=== PATIENT | female | born 1975 | race Caucasian/White ===

== ENCOUNTER 2023-04-08 10:49 | Outpatient (CLI) | payer BC ==
[2023-04-08 12:02] LABS: Hematocrit 42.2 % (34.9-44.5)
== END 2023-04-08 10:50 | disposition home or self-care (01) ==
LOC: LABBT 10:49
PROVIDERS: ATTEND Specialist
DX: Z01.812 Encounter for preprocedural laboratory examination (principal); G47.33 Obstructive sleep apnea (adult) (pediatric); J34.2 Deviated nasal septum; J34.3 Hypertrophy of nasal turbinates; J34.89 Other specified disorders of nose and nasal sinuses
CPT/HCPCS: 85014

== ENCOUNTER 2023-04-10 08:52 | Day surgery (SDC) | payer BC ==
[2023-04-08 11:14] VITALS: BMI 25.4
[2023-04-10] MEDS ORDERED: Scopolamine 1 mg/72 hour Patch ONE (09:03)
[2023-04-10] MEDS ORDERED: Oxymetazoline HCl 0.05% (30 ML BOT) ONE ×2 (09:04→09:08)
[2023-04-10] MEDS ORDERED: Bacitracin Zinc Ointment 30 gm TUBE ONE (09:08)
[2023-04-10] MEDS ORDERED: EPINEPHrine 1 MG/ML VIAL ONE (09:08)
[2023-04-10] MEDS ORDERED: Lidocaine 1% (PF) 30 ML VIAL ONE (09:09)
[2023-04-10] MEDS ORDERED: fentaNYL PF 100 MCG/2 ML SYRINGE ONE (09:15)
[2023-04-10] MEDS ORDERED: Propofol 1,000 MG/100 ML VIAL IV ONE (09:17)
[2023-04-10] MEDS ORDERED: Midazolam HCl 2 mg/2 ml Vial ONE (09:29)
[2023-04-10] MEDS ORDERED: Acetaminophen 500 MG TAB ONE (09:32)
[2023-04-10] MEDS ORDERED: Dexamethasone 20 MG/5 ML VIAL ONE (09:55)
[2023-04-10] MEDS ORDERED: Ondansetron PF 4 MG/2 ML Vial ONE (09:55)
[2023-04-10] MEDS ORDERED: PROPOFOL 200 MG/20 ML VIAL ONE (09:55)
[2023-04-10] MEDS ORDERED: Rocuronium Bromide 10 MG/ML (10ML VIAL) ONE (09:55)
[2023-04-10] MEDS ORDERED: ePHEDrine Sulfate 50 MG/10 ML VIAL ONE ×2 (09:55→10:07)
[2023-04-10] MEDS ORDERED: Ketorolac Tromethamine 30 MG/ML VIAL ONE (09:55)
[2023-04-10] MEDS ORDERED: Lidocaine 1% PF 5 ML VIAL ONE (09:55)
[2023-04-10] MEDS ORDERED: fentaNYL 50 mcg/mL 1 mL Vial ONE (11:30)
== END 2023-04-10 13:00 | disposition home or self-care (01) ==
LOC: SDC 08:52
PROVIDERS: ATTEND Specialist
PROC: 8E09XBZ Computer Assisted Procedure of Head and Neck Region (ICD-10-PCS; principal; 2023-04-10)
PROC: 09TV4ZZ Resection of Left Ethmoid Sinus, Percutaneous Endoscopic Approach (ICD-10-PCS; principal; 2023-04-10)
PROC: 09BM4ZZ Excision of Nasal Septum, Percutaneous Endoscopic Approach (ICD-10-PCS; principal; 2023-04-10)
PROC: 09TU4ZZ Resection of Right Ethmoid Sinus, Percutaneous Endoscopic Approach (ICD-10-PCS; principal; 2023-04-10)
PROC: 09JK8ZZ Inspection of Nasal Mucosa and Soft Tissue, Via Natural or Artificial Opening Endoscopic (ICD-10-PCS; principal; 2023-04-10)
DX: J34.3 Hypertrophy of nasal turbinates (principal); J32.8 Other chronic sinusitis; J34.2 Deviated nasal septum; G47.33 Obstructive sleep apnea (adult) (pediatric); H90.3 Sensorineural hearing loss, bilateral; J30.1 Allergic rhinitis due to pollen; J30.81 Allergic rhinitis due to animal (cat) (dog) hair and dander; J30.89 Other allergic rhinitis; E03.9 Hypothyroidism, unspecified; F41.9 Anxiety disorder, unspecified; Z79.890 Hormone replacement therapy; Z79.899 Other long term (current) drug therapy
CPT/HCPCS: J0171; J1100; J1885; J2001; J2250; J2405; J2704; J3010

== ENCOUNTER 2024-04-01 14:32 | Outpatient (CLI) | payer BC | END 2024-04-01 14:33 | disposition home or self-care (01) | LOC: SCSRAD 14:32 | PROVIDERS: ATTEND Nurse Practitioner Family | DX: S99.922A Unspecified injury of left foot, initial encounter (principal) ==